=== PATIENT | male | born 1975 | race Caucasian/White ===

== ENCOUNTER 2017-02-07 08:48 | Day surgery (SDC) | payer BC ==
[2017-02-06 09:18] VITALS: BMI 23.3
[~2017-02-07 08:48] MED LIST: LACTATED RINGERS 1,000 ML IV SCH
[2017-02-07 09:01] VITALS: RESP 16; TEMP 98.4
[2017-02-07] MEDS ORDERED: LIDOCAINE 1% 20 ML VIAL (10MG/ML) FOR IV START INTRADERMA ONE (09:02)
[2017-02-07] MEDS ORDERED: PROPOFOL 10 MG/ML 20 ML VIAL IV ONE (09:13)
[2017-02-07] MEDS ORDERED: MIDAZOLAM 2 MG/2 ML VIAL ONE (09:13)
[2017-02-07] MEDS ORDERED: LIDOCAINE 1% INJ 10MG/ML (20 ML MDV) ONE (09:13)
--- NOTE | 2017-02-07 09:43 | P.PCN ---
Date of Procedure: 02/07/17 Procedure(s) Performed: Procedure: Esophagogastroduodenoscopy and biopsy. Preoperative diagnosis: Dyspepsia. Postoperative diagnosis: 1. Very small sliding hiatal hernia with no obvious esophagitis or complicated reflux disease. 2. Mild antral gastritis. 3. Multiple biopsies obtained from the duodenum, antrum and esophagus. Preparation and sedation: Was provided by anesthesia. Brief clinical history: The patient is a 41-year-old male who is referred for this evaluation because of dyspepsia type symptoms that he has been experiencing for the last 2 or 3 months. He has taken PPI for the last 1-1/2 months with no significant change in his symptoms. No vomiting or bleeding. No weight loss or other alarm symptoms. This would be his first upper endoscopy. Procedure: With the patient on his left lateral decubitus position and after informed consent and adequate sedation, I passed the Olympus-GIF 160 video upper endoscope through the cricopharyngeus down the esophagus. GE junction was around 40-41 cm from the incisors and there was a very small sliding hiatal hernia but no obvious esophagitis or complicated reflux disease. The endoscope was then passed into the stomach which was insufflated with air and inspected in detail including the retroflex view in the cardia. There was some mottling and erythema in the antrum but no ulcers or erosions. Pyloric channel, duodenal bulb, post bulbar area and descending duodenum appeared within normal limits. Because of his symptoms, I obtained multiple biopsies from the duodenum , antrum and esophagus then the endoscope was withdrawn. The patient tolerated the procedure well. Plan: The patient was reassured. Will await biopsy results then make further plans based on his course and biopsy results. He will follow up with you as planned and I would be happy to see in the office if his symptoms persist.
[2017-02-07 10:10] VITALS: BP 100/61; PULSE 54
== END 2017-02-07 10:40 | disposition home or self-care (01) ==
LOC: ORWHC2ENDO 08:48
DX: K29.50 Unspecified chronic gastritis without bleeding (principal); K44.9 Diaphragmatic hernia without obstruction or gangrene; G89.29 Other chronic pain; M25.569 Pain in unspecified knee; Z79.1 Long term (current) use of non-steroidal anti-inflammatories (NSAID); Z79.891 Long term (current) use of opiate analgesic; Z79.899 Other long term (current) drug therapy
CPT/HCPCS: 88305; 88342; 43239; J2250; J2001; J2704

== ENCOUNTER → 2020-11-25 | Outpatient (CLI) | payer BC | END | disposition home or self-care (01) | LOC: LABPAT 08:49 | PROVIDERS: ATTEND Surgery | DX: Z01.818 Encounter for other preprocedural examination (principal); Z20.822 Contact with and (suspected) exposure to COVID-19 | CPT/HCPCS: 93005; U0003; C9803; U0005 ==

== ENCOUNTER → 2020-12-02 | Day surgery (SDC) | payer BC ==
[2020-12-01 09:43] VITALS: BMI 23.3
[~2020-12-02] MED LIST changes: +BUPIVACAINE-EPI 0.5%-1:200,000 10 ML VIAL SQ ONE; +DEXAMETHASONE SOD PHOSPHATE 4 MG/ML 1 ML VIAL IV ONE; +DEXAMETHASONE SOD PHOSPHATE 4 MG/ML 1 ML VIAL ONE; +GLYCOPYRROLATE 0.2 MG/ML 2 ML VIAL ONE; +HEPARIN SODIUM,PORCINE 5,000 UNIT/ML 1 ML VIAL SQ PRN; +HYDROcodone/APAP 10-325MG 1 EACH TAB ONE; +HYDROcodone/APAP 10-325MG 1 EACH TAB PO ONE; +HYDROmorphone 1 MG/ML 1 ML SYRINGE IVP ONE; +LACTATED RINGERS 1,000 ML IV ONE; -LACTATED RINGERS 1,000 ML IV SCH; +LIDOCAINE 1% (10MG/ML) FOR IV START INTRADERMA PRN; +LIDOCAINE 1% INJ 10MG/ML (20 ML MDV) ONE; +MIDAZOLAM 2 MG/2 ML VIAL IV PRN; +MIDAZOLAM 2 MG/2 ML VIAL IVP ONE; +MIDAZOLAM 2 MG/2 ML VIAL ONE; +NEOSTIGMINE 1 MG/ML 10 ML VIAL ONE; +ONDANSETRON 4 MG/2 ML VIAL IVP ONE; +PROPOFOL 10 MG/ML 20 ML VIAL IV ONE; +ROCURONIUM 10 MG/ML (5 ML VIAL) IV ONE; +ROPIVACAINE 5 MG/ML 30 ML VIAL ONE; +SUCCINYLCHOLINE CHLORIDE 100 MG/5 ML SYR IV ONE; +diphenhydrAMINE 50 MG/ML 1 ML VIAL IVP ONE; +fentaNYL (PF) 50 MCG/ML 2 ML AMP IVP ONE; +fentaNYL (PF) 50 MCG/ML 2 ML AMP ONE
[2020-12-02 09:18] VITALS: RESP 16
[2020-12-02] MEDS: LACTATED RINGERS 1,000 ML IV SCH ×2 (09:30→10:27)
--- NOTE | 2020-12-02 10:20 | P.ANPRN ---
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
--- NOTE | 2020-12-02 11:48 | P.OP ---
Date of Procedure: 12/02/20 Preoperative Diagnosis: Umbilical hernia Postoperative Diagnosis: Umbilical hernia Procedure(s) Performed: Robotic umbilical hernia repair with mesh placement Anesthesia: KARUNA Surgeon: Rosa M Aly Pathology: other (Hernia sac) Condition: stable Disposition: same day Indications for Procedure: 45-year-old male presented initially to the surgical clinic with complaints of pain around the umbilicus. On exam, the pain was isolated to an umbilical hernia. Patient has requested surgical repair. Patient was excellent the risks, benefits and alternatives to the procedure and did provide consent prior to attending the operating suite. Operative Findings: Umbilical hernia with preperitoneal fat Description of Procedure: The patient was brought to the operating suite and placed in supine position on the operating table. Gen. anesthesia with endotracheal intubation was performed as per anesthesia team. The right arm was tucked against the body and a footboard was applied. Patient was prepped and regular sterile fashion. A timeout was performed to verify correct patient and correct procedure. Patient was confirmed to received perioperative IV antibiotics, bilateral SCDs and 5000 units of subcutaneous heparin for DVT prophylaxis. A 5 mm incision was made along the left midaxillary line at pal[place] point and the abdomen was entered under direct visualization using a Visiport. Pneumoperitoneum was achieved. The umbilical hernia was clearly visualized. An additional 8 mm trocar was placed in left lower abdomen and in the epigastrium. The initial 5 mm trocar was upsized to a 12 mm trocar. The Decision Pace Keegan robot was then docked. The 30 robotic camera was used. Robotic prograsp and monopolar scissors were inserted through the 8 mm robotic trochars. The hernia defect contained preperitoneal fat which was reduced using gentle traction and countertraction method. The falciform ligament was divided, using monopolar scissors close to the anterior abdominal wall to create a landing zone for the mesh. A Ventralight Echo 11 cm circular mesh was rolled and introduced into the abdominal cavity via the 12 mm trocar. The hernia defect was closed primarily with running sutures using 0V lock by taking once a bite on the fascia on either side of the defect. A Stephen Bates device was inserted through the middle of the hernia defect and the stay suture on the mesh was grasped to elevate the mesh against the anterior abdominal wall. The mesh was then circumferentially sutured to the peritoneum of the anterior abdominal wall using 20V lock suture without any folds or kinks. The robot was then undocked. Laparoscopic 30 camera was reinserted. All trocar sites were examined. No evidence of bleeding. The 12 mm trocar site was closed using 2 transverse fascial sutures of 0 Vicryl which was placed using a Stephen Bates device. The hernia sac was removed from the abdomen and sent as specimen. The pneumoperitoneum was evacuated and all skin incisions were closed using 4-0 Monocryl suture followed by Dermabond skin glue. The sponge, instrument and needle count were correct 2. Abdominal binder was applied. The patient was extubated and taken to postanesthesia care unit in stable condition.
[2020-12-02] MEDS: HYDROmorphone 0.5 MG/0.5 ML SYRINGE IVP PRN ×2 (12:14→12:20)
[2020-12-02 12:27] VITALS: TEMP 97.2
[2020-12-02 14:02] VITALS: BP 118/77; PULSE 82
== END | disposition home or self-care (01) ==
LOC: OR 08:53
PROVIDERS: ATTEND Surgery
DX: K42.9 Umbilical hernia without obstruction or gangrene (principal); F32.9 Major depressive disorder, single episode, unspecified; G43.909 Migraine, unspecified, not intractable, without status migrainosus; E05.90 Thyrotoxicosis, unspecified without thyrotoxic crisis or storm; E78.5 Hyperlipidemia, unspecified; N40.0 Benign prostatic hyperplasia without lower urinary tract symptoms; M19.90 Unspecified osteoarthritis, unspecified site; F90.9 Attention-deficit hyperactivity disorder, unspecified type; Z86.19 Personal history of other infectious and parasitic diseases; Z80.1 Family history of malignant neoplasm of trachea, bronchus and lung; Z87.891 Personal history of nicotine dependence; Z79.899 Other long term (current) drug therapy; Z79.890 Hormone replacement therapy; Z79.1 Long term (current) use of non-steroidal anti-inflammatories (NSAID); Z79.891 Long term (current) use of opiate analgesic
CPT/HCPCS: 49652; S2900; 36415; 64488; 86850; 86900; 86901; 88302

== ENCOUNTER 2020-12-04 21:42 | Emergency (ER) | payer BC ==
[2020-12-04] MEDS ORDERED: HYDROmorphone 1 MG/ML 1 ML SYRINGE IVP STA (22:30)
[2020-12-04] MEDS ORDERED: SODIUM CHLORIDE 0.9% 1,000 ML IV STA (22:30)
[2020-12-04] MEDS ORDERED: ONDANSETRON 4 MG/2 ML VIAL IVP STA (22:30)
[2020-12-04 22:49] LABS: Basophils # (A) 0.1 k/uL (0-0.2); Basophils % (A) 1 %; Eosinophils # (A) 0.3 k/uL (0-0.7); Eosinophils % (A) 3 %; HCT 44.7 % (39.0-53.0); HGB 15.3 gm/dL (13.0-17.5); Lymphocytes # (A) 2.4 k/uL (1.0-4.8); Lymphocytes % (A) 22 %; MCHC 34.2 g/dL (31.0-37.0); MCV 90.7 fL (80.0-100.0); Mean Platelet Volume 10.9; Monocytes # (A) 0.6 k/uL (0-1.0); Monocytes % (A) 5 %; Neutrophils # (A) 7.6 k/uL (1.3-7.7); Neutrophils % (A) 69 %; Platelet Count 187 k/uL (150-450); RBC 4.93 m/uL (4.30-5.90); RDW 12.8 % (11.5-15.5)
[2020-12-04 23:01] LABS: Albumin 4.8 g/dL (3.5-5.0); Calcium 9.9 mg/dL (8.4-10.2); Potassium 4.1 mmol/L (3.5-5.1)
[2020-12-04 23:02] LABS: INR 0.9 (<1.2); Partial Thromboplastin Time 24.1 sec (22.0-30.0); Prothrombin Time 9.5 sec (9.0-12.0)
[2020-12-04 23:09] LABS: Appearance,Urine Clear (Clear); Bilirubin,Urine Negative (Negative); Blood,Urine Negative (Negative); Color,Urine Yellow; Glucose,Urine (UA) Negative (Negative); Ketones,Urine Negative (Negative); Leukocyte Esterase,Urine Negative (Negative); Nitrite,Urine Negative (Negative); PH, Urine 6.5 (5.0-8.0); Protein,Urine Negative (Negative); Specific Gravity,Urine 1.016 (1.001-1.035); Urobilinogen,Urine <2.0 mg/dL (<2.0)
--- NOTE | 2020-12-04 23:41 | CT ---
EXAMINATION TYPE: CT abdomen pelvis w con DATE OF EXAM: 12/04/2020 COMPARISON: None HISTORY: Abdominal pain after surgery CT DLP: 672.8 mGycm Automated exposure control for dose reduction was used. CONTRAST: Performed with IV Contrast, patient injected with 100 mL of Isovue 300. Images obtained from the diaphragm to the floor the pelvis with IV contrast. There is some patchy atelectasis at the lung bases. There is mild pleural thickening at the posterior lung bases. Heart size is normal. There is no pericardial effusion. There is small pneumoperitoneum consistent with recent surgery. The liver spleen stomach pancreas gal lbladder appear normal. Bile ducts are not dilated. There is no adrenal mass. Kidneys show satisfactory contrast opacification. There is no hydronephrosi s. Ureters are not dilated. Bladder distends smoothly. There is no inguinal hernia. There is small am ount of free fluid in the pelvis. This has low density. Appendix is posterior and appears normal. There is no mesenteric edema. There is no ascites or free a ir. There is no sign of a bowel obstruction. There are a few air bubbles at the umbilicus consistent with recent surgery. There is minimal fluid or fat stranding in the left paracolic gutter. The lumbar vertebra have normal spacing and alignment. Posterior elements are intact. There is no compression fracture. Bony pelvis is intact. The hip joints appear normal. IMPRESSION: Bilateral lower lobe mild atelectasis and pleural reaction. Recent surgery. Tiny amount of low-density fluid in the left paracolic gutter and in the pelvis.
[2020-12-05] MEDS ORDERED: HYDROmorphone 1 MG/ML 1 ML SYRINGE IVP STA (00:13)
--- NOTE | 2020-12-05 00:36 | ED ---
General Adult HPI - General Chief complaint: Abdominal Pain Stated complaint: post op Abd Pain Time Seen by Provider: 12/04/20 22:11 Source: patient Mode of arrival: wheelchair Limitations: no limitations - History of Present Illness Initial comments: 45 year-old male patient presents to the emergency department for evaluation of generalized abdominal pain. Patient is post op day # 2 from repair of umbilical hernia with Dr. Aly. Patient states that his pain has been severe since the procedure. States he is taking [place] 10 and ibuprofen, it is not helping. Denies any fever, nausea, or vomiting. States he is passing gas. Has not had a bowel movement. States he is eating and drinking without difficulty. Has been wearing his abdominal binder. Denies bleeding or drainage from incision sites. Has not contacted Dr. Aly about his symptoms. Patient denies any recent rash, cough, shortness of breath, chest pain, back pain, numbness, tingling, dizziness, weakness, hematuria, dysuria, urinary urgency, urinary frequency, headache, visual changes, or any other complaints. - Related Data Home Medications Medication Instructions Recorded Confirmed Colesevelam [Welchol] 625 mg PO 1200 02/06/17 12/02/20 Dextroamphetamine/Amphetamine 20 mg PO DAILY PRN 02/06/17 12/01/20 [Adderall] Diclofenac Sodium [Voltaren] 75 mg PO DAILY PRN 02/06/17 12/02/20 Testosterone [Androderm] 1 patch TRANSDERM DAILY 02/06/17 12/02/20 traMADol HCL [Ultram] 50 mg PO TID PRN 02/06/17 12/02/20 Levothyroxine Sodium [Synthroid] 25 mcg PO HS 12/01/20 12/02/20 Tadalafil [Alyq] 20 mg PO DIRECTED PRN 12/01/20 12/02/20 Previous Rx's Medication Instructions Recorded HYDROcodone/APAP 10-325MG [[place] 1 tab PO Q6HR PRN 3 Days #12 tab 12/02/20 10-325] Ibuprofen [Motrin] 800 mg PO Q8H PRN #24 tab 12/02/20 Allergies Allergy/AdvReac Type Severity Reaction Status Date / Time No Known Allergies Allergy Verified 12/04/20 21:54 Review of Systems ROS Statement: Those systems with pertinent positive or pertinent negative responses have been documented in the HPI. ROS Other: All systems not noted in ROS Statement are negative. Past Medical History Past Medical History: Hyperlipidemia Additional Past Medical History / Comment(s): HAS BEEN HAVING EPISODES OF NAUSEA FOR PAST 3 MONTHS. HAS NOT TAKEN RX MEDS FOR SEVERAL DAYS R/T NAUSEA History of Any Multi-Drug Resistant Organisms: None Reported Past Surgical History: Hernia Repair Past Anesthesia/Blood Transfusion Reactions: No Reported Reaction Past Psychological History: ADD/ADHD Smoking Status: Former smoker Past Alcohol Use History: Rare Past Drug Use History: None Reported - Past Family History Mother Family Medical History: Cancer General Exam Limitations: no limitations General appearance: alert, in no apparent distress, other (This is a well-developed, well-nourished adult male patient in mild distress related to pain. Vital signs upon presentation are temperature 99.6F, pulse 90, respirations 17, blood pressure 126/81 98% on room air.) Eye exam: Present: normal appearance, PERRL, EOMI. Absent: scleral icterus, conjunctival injection, periorbital swelling ENT exam: Present: normal exam, normal oropharynx, mucous membranes moist Respiratory exam: Present: normal lung sounds bilaterally. Absent: respiratory distress, wheezes, rales, rhonchi, stridor Cardiovascular Exam: Present: regular rate, normal rhythm, normal heart sounds. Absent: systolic murmur, diastolic murmur, rubs, gallop, clicks GI/Abdominal exam: Present: soft, tenderness (generalized), normal bowel sounds, other (Multiple small incisions are well approximated, mild surrounding ecchymosis. No drainage. ). Absent: distended, guarding, rebound, rigid Neurological exam: Present: alert, oriented X3, CN II-XII intact Psychiatric exam: Present: normal affect, normal mood Skin exam: Present: warm, dry, intact, normal color. Absent: rash Course Vital Signs 12/04/20 21:50 Temperature 99.6 F Pulse Rate 90 Respiratory 17 Rate Blood Pressure 126/81 O2 Sat by Pulse 98 Oximetry Medical Decision Making - Medical Decision Making 45 year-old male patient presents to the emergency department today for evaluation of generalized abdominal pain. He is postop day #2 after umbilical hernia repair with Dr. Aly. Physical examination did reveal generalized abdominal tenderness. Incisions are intact with no drainage or bleeding. Labs reviewed and are unremarkable. CT abdomen and pelvis was obtained and showed postsurgical changes. I did discuss the case with my attending Dr. Grayson. We will discharge patient to follow-up with Dr. Aly first thing in the morning. He is instructed to continue taking his [place] at home. Return parameters discussed in detail. He verbalizes understanding and agrees with this plan. - Lab Data Result diagrams: 12/04/20 22:36 12/04/20 22:36 Lab Results 12/04/20 12/04/20 12/04/20 Range/Units 22:36 22:36 22:36 WBC 11.0 H (3.8-10.6) k/uL RBC 4.93 (4.30-5.90) m/uL Hgb 15.3 (13.0-17.5) gm/dL Hct 44.7 (39.0-53.0) % MCV 90.7 (80.0-100.0) fL MCH 31.0 (25.0-35.0) pg MCHC 34.2 (31.0-37.0) g/dL RDW 12.8 (11.5-15.5) % Plt Count 187 (150-450) k/uL MPV 10.9 Neutrophils % 69 % Lymphocytes % 22 % Monocytes % 5 % Eosinophils % 3 % Basophils % 1 % Neutrophils # 7.6 (1.3-7.7) k/uL Lymphocytes # 2.4 (1.0-4.8) k/uL Monocytes # 0.6 (0-1.0) k/uL Eosinophils # 0.3 (0-0.7) k/uL Basophils # 0.1 (0-0.2) k/uL PT 9.5 (9.0-12.0) sec INR 0.9 (<1.2) APTT 24.1 (22.0-30.0) sec Sodium (137-145) mmol/L Potassium (3.5-5.1) mmol/L Chloride (98-107) mmol/L Carbon Dioxide (22-30) mmol/L Anion Gap mmol/L BUN (9-20) mg/dL Creatinine (0.66-1.25) mg/dL Est GFR (CKD-EPI)AfAm (>60 ml/min/1.73 sqM) Est GFR (CKD-EPI)NonAf (>60 ml/min/1.73 sqM) Glucose (74-99) mg/dL Plasma Lactic Acid Guillermo (0.7-2.0) mmol/L Calcium (8.4-10.2) mg/dL Total Bilirubin (0.2-1.3) mg/dL AST (17-59) U/L ALT (4-49) U/L Alkaline Phosphatase (38-126) U/L Total Protein (6.3-8.2) g/dL Albumin (3.5-5.0) g/dL Lipase (23-300) U/L Urine Color Yellow Urine Appearance Clear (Clear) Urine pH 6.5 (5.0-8.0) Ur Specific [place] 1.016 (1.001-1.035) Urine Protein Negative (Negative) Urine Glucose (UA) Negative (Negative) Urine Ketones Negative (Negative) Urine Blood Negative (Negative) Urine Nitrite Negative (Negative) Urine Bilirubin Negative (Negative) Urine Urobilinogen <2.0 (<2.0) mg/dL Ur Leukocyte Esterase Negative (Negative) 12/04/20 12/04/20 Range/Units 22:36 22:36 WBC (3.8-10.6) k/uL RBC (4.30-5.90) m/uL Hgb (13.0-17.5) gm/dL Hct (39.0-53.0) % MCV (80.0-100.0) fL MCH (25.0-35.0) pg MCHC (31.0-37.0) g/dL RDW (11.5-15.5) % Plt Count (150-450) k/uL MPV Neutrophils % % Lymphocytes % % Monocytes % % Eosinophils % % Basophils % % Neutrophils # (1.3-7.7) k/uL Lymphocytes # (1.0-4.8) k/uL Monocytes # (0-1.0) k/uL Eosinophils # (0-0.7) k/uL Basophils # (0-0.2) k/uL PT (9.0-12.0) sec INR (<1.2) APTT (22.0-30.0) sec Sodium 140 (137-145) mmol/L Potassium 4.1 (3.5-5.1) mmol/L Chloride 100 (98-107) mmol/L Carbon Dioxide 29 (22-30) mmol/L Anion Gap 11 mmol/L BUN 13 (9-20) mg/dL Creatinine 1.18 (0.66-1.25) mg/dL Est GFR (CKD-EPI)AfAm 85 (>60 ml/min/1.73 sqM) Est GFR (CKD-EPI)NonAf 74 (>60 ml/min/1.73 sqM) Glucose 102 H (74-99) mg/dL Plasma Lactic Acid [place] 1.6 (0.7-2.0) mmol/L Calcium 9.9 (8.4-10.2) mg/dL Total Bilirubin 1.0 (0.2-1.3) mg/dL AST 91 H (17-59) U/L ALT 126 H (4-49) U/L Alkaline Phosphatase 110 (38-126) U/L Total Protein 8.0 (6.3-8.2) g/dL Albumin 4.8 (3.5-5.0) g/dL Lipase 107 (23-300) U/L Urine Color Urine Appearance (Clear) Urine pH (5.0-8.0) Ur Specific [place] (1.001-1.035) Urine Protein (Negative) Urine Glucose (UA) (Negative) Urine Ketones (Negative) Urine Blood (Negative) Urine Nitrite (Negative) Urine Bilirubin (Negative) Urine Urobilinogen (<2.0) mg/dL Ur Leukocyte Esterase (Negative) - Radiology Data Radiology results: report reviewed, image reviewed CT abdomen and pelvis is obtained with contrast. Report was reviewed in its entirety. Impression by Dr. Izquierdo shows bilateral lower lobe mild atelectasis and pleural reaction. Recent surgery. Tiny amount of low density fluid in the left paracolic gutter and in the pelvis. Disposition Clinical Impression: Post-op pain Disposition: HOME SELF-CARE Condition: Good Instructions (If sedation given, give patient instructions): Abdominal Pain (ED) Additional Instructions: Call Dr. Aly's office first thing in the morning for further instructions. Return to the emergency department for any new, worsening, or concerning symptoms. Is patient prescribed a controlled substance at d/c from ED?: No Referrals: Edgar Willis MD [Primary Care Provider] - 1-2 days Time of Disposition: 00:36
[2020-12-05 01:11] VITALS: BP 122/86; PULSE 76; RESP 18; TEMP 98.6
== END 2020-12-05 00:55 | disposition home or self-care (01) ==
LOC: EC 21:42
DX: G89.18 Other acute postprocedural pain (principal); R10.84 Generalized abdominal pain; R10.817 Generalized abdominal tenderness; E78.5 Hyperlipidemia, unspecified; F90.9 Attention-deficit hyperactivity disorder, unspecified type; Z79.890 Hormone replacement therapy; Z79.899 Other long term (current) drug therapy; Z87.891 Personal history of nicotine dependence
CPT/HCPCS: 36415; 80053; 83605; 83690; 85025; 85610; 85730; 81003; 74177; 99284; 96374; 96375; 96376; 96361; J2405; J1170; Q9967

== ENCOUNTER 2020-12-09 00:51 | Observation (INO) | payer BC ==
[2020-12-09] MEDS ORDERED: SODIUM CHLORIDE 0.9% 1,000 ML IV STA (01:19)
--- NOTE | 2020-12-09 01:19 | ED ---
Abdominal Pain HPI - General Chief Complaint: Abdominal Pain Stated Complaint: Abd Pain Time Seen by Provider: 12/09/20 01:03 Source: patient, family Mode of arrival: wheelchair Limitations: no limitations - History of Present Illness Initial Comments: 45-year-old male presents to emergency Department with a chief complaint of constipation. Patient states he had an umbilical hernia repair 7 days ago and has not had a bowel movement since. Patient reports he was in the emergency department 2 days after procedure where a CAT scan was performed with no acute findings. Patient reports he has been taking MiraLAX as well as a glycerin suppository with no progress of this. Patient reports he is otherwise eating and drinking without issues. Denies any nausea vomiting or diarrhea. States he feels like his abdomen is bloated. Denies any urinary symptoms. Denies any fevers or chills. Patient does take occasional [place] for arthritic pain. - Related Data Home Medications Medication Instructions Recorded Confirmed Colesevelam [Welchol] 625 mg PO 1200 02/06/17 12/02/20 Dextroamphetamine/Amphetamine 20 mg PO DAILY PRN 02/06/17 12/01/20 [Adderall] Diclofenac Sodium [Voltaren] 75 mg PO DAILY PRN 02/06/17 12/02/20 Testosterone [Androderm] 1 patch TRANSDERM DAILY 02/06/17 12/02/20 traMADol HCL [Ultram] 50 mg PO TID PRN 02/06/17 12/02/20 Levothyroxine Sodium [Synthroid] 25 mcg PO HS 12/01/20 12/02/20 Tadalafil [Alyq] 20 mg PO DIRECTED PRN 12/01/20 12/02/20 Previous Rx's Medication Instructions Recorded HYDROcodone/APAP 10-325MG [[place] 1 tab PO Q6HR PRN 3 Days #12 tab 12/02/20 10-325] Ibuprofen [Motrin] 800 mg PO Q8H PRN #24 tab 12/02/20 Allergies Allergy/AdvReac Type Severity Reaction Status Date / Time No Known Allergies Allergy Verified 12/09/20 00:56 Review of Systems ROS Statement: Those systems with pertinent positive or pertinent negative responses have been documented in the HPI. ROS Other: All systems not noted in ROS Statement are negative. Past Medical History Past Medical History: Hyperlipidemia Additional Past Medical History / Comment(s): HAS BEEN HAVING EPISODES OF NAUSEA FOR PAST 3 MONTHS. HAS NOT TAKEN RX MEDS FOR SEVERAL DAYS R/T NAUSEA History of Any Multi-Drug Resistant Organisms: None Reported Past Surgical History: Hernia Repair Past Anesthesia/Blood Transfusion Reactions: No Reported Reaction Past Psychological History: ADD/ADHD Smoking Status: Former smoker Past Alcohol Use History: Rare Past Drug Use History: None Reported - Past Family History Mother Family Medical History: Cancer General Exam Limitations: no limitations General appearance: alert, in no apparent distress Head exam: Present: atraumatic, normocephalic, normal inspection Eye exam: Present: normal appearance, PERRL, EOMI Pupils: Present: normal accommodation ENT exam: Present: normal exam, normal oropharynx, mucous membranes moist Neck exam: Present: normal inspection, full ROM. Absent: tenderness Respiratory exam: Present: normal lung sounds bilaterally. Absent: respiratory distress Cardiovascular Exam: Present: regular rate, normal rhythm, normal heart sounds GI/Abdominal exam: Present: soft (Laparoscopic incision sites are healing well.), normal bowel sounds. Absent: distended, tenderness (No significant abdominal tenderness), guarding, rebound, rigid Extremities exam: Present: normal inspection, full ROM Back exam: Present: normal inspection, full ROM. Absent: tenderness, CVA tenderness (R), CVA tenderness (L) Neurological exam: Present: alert, oriented X3 Psychiatric exam: Present: normal affect, normal mood Skin exam: Present: warm, dry, intact, normal color Course Vital Signs 12/09/20 00:56 Temperature 99.2 F Pulse Rate 87 Respiratory 16 Rate Blood Pressure 134/90 O2 Sat by Pulse 98 Oximetry - Reevaluation(s) Reevaluation #1: 12/09/20 03:25 Medical records reviewed Medical Decision Making - Medical Decision Making 45-year-old male presents to emergency Department with a chief complaint of constipation. On physical examination, no significant abdominal tenderness. Incision sites are healing well from the laparoscopic umbilical hernia repair. KUB obtained shows moderate stool burden in the ascending colon. Patient was given IV fluids. Milk of molasses enema attempted. Patient was also given magnesium citrate. CBC revealed leukocytosis of 14.2. CMP transaminitis but otherwise unremarkable. UA pending. At this time, patient care signed off to . - Lab Data Result diagrams: 12/09/20 02:12 12/09/20 02:12 Lab Results 12/09/20 12/09/20 Range/Units 02:12 02:12 WBC 14.8 H (3.8-10.6) k/uL RBC 4.68 (4.30-5.90) m/uL Hgb 14.2 (13.0-17.5) gm/dL Hct 42.1 (39.0-53.0) % MCV 90.1 (80.0-100.0) fL MCH 30.4 (25.0-35.0) pg MCHC 33.7 (31.0-37.0) g/dL RDW 12.1 (11.5-15.5) % Plt Count 211 (150-450) k/uL MPV 8.6 Neutrophils % 84 % Lymphocytes % 9 % Monocytes % 4 % Eosinophils % 3 % Basophils % 1 % Neutrophils # 12.5 H (1.3-7.7) k/uL Lymphocytes # 1.3 (1.0-4.8) k/uL Monocytes # 0.5 (0-1.0) k/uL Eosinophils # 0.4 (0-0.7) k/uL Basophils # 0.1 (0-0.2) k/uL Sodium 137 (137-145) mmol/L Potassium 5.0 (3.5-5.1) mmol/L Chloride 102 (98-107) mmol/L Carbon Dioxide 29 (22-30) mmol/L Anion Gap 6 mmol/L BUN 16 (9-20) mg/dL Creatinine 1.07 (0.66-1.25) mg/dL Est GFR (CKD-EPI)AfAm >90 (>60 ml/min/1.73 sqM) Est GFR (CKD-EPI)NonAf 84 (>60 ml/min/1.73 sqM) Glucose 100 H (74-99) mg/dL Calcium 9.6 (8.4-10.2) mg/dL Total Bilirubin 0.8 (0.2-1.3) mg/dL AST 148 H (17-59) U/L ALT 226 H (4-49) U/L Alkaline Phosphatase 105 (38-126) U/L Total Protein 7.0 (6.3-8.2) g/dL Albumin 4.1 (3.5-5.0) g/dL Amylase 71 (30-110) U/L Lipase 69 (23-300) U/L Disposition Referrals: Edgar Willis MD [Primary Care Provider] - 1-2 days
[2020-12-09 02:21] LABS: Basophils # (A) 0.1 k/uL (0-0.2); Basophils % (A) 1 %; Eosinophils # (A) 0.4 k/uL (0-0.7); Eosinophils % (A) 3 %; HCT 42.1 % (39.0-53.0); HGB 14.2 gm/dL (13.0-17.5); Lymphocytes # (A) 1.3 k/uL (1.0-4.8); Lymphocytes % (A) 9 %; MCH 30.4 pg (25.0-35.0); MCHC 33.7 g/dL (31.0-37.0); MCV 90.1 fL (80.0-100.0); Mean Platelet Volume 8.6; Monocytes # (A) 0.5 k/uL (0-1.0); Monocytes % (A) 4 %; Neutrophils # (A) 12.5 k/uL (1.3-7.7); Neutrophils % (A) 84 %; Platelet Count 211 k/uL (150-450); RBC 4.68 m/uL (4.30-5.90); RDW 12.1 % (11.5-15.5); WBC 14.8 k/uL (3.8-10.6)
[2020-12-09 02:36] LABS: ALT 226 U/L (4-49); AST 148 U/L (17-59); African American GFR (CKD) >90 (>60 ml/min/1.73 sqM); Albumin 4.1 g/dL (3.5-5.0); Alkaline Phosphatase 105 U/L (38-126); Amylase 71 U/L (30-110); Anion Gap 6 mmol/L; Blood Urea Nitrogen 16 mg/dL (9-20); Calcium 9.6 mg/dL (8.4-10.2); Carbon Dioxide 29 mmol/L (22-30); Chloride 102 mmol/L (98-107); Glucose 100 mg/dL (74-99); Lipase 69 U/L (23-300); Non-African American GFR(CKD) 84 (>60 ml/min/1.73 sqM); Sodium 137 mmol/L (137-145); Total Bilirubin 0.8 mg/dL (0.2-1.3)
--- NOTE | 2020-12-09 02:53 | XR ---
EXAM: XR Abdomen, 1 View CLINICAL HISTORY: ITS.REASON XR Reason: constipation TECHNIQUE: Frontal supine view of the abdomen/pelvis. COMPARISON: CT 12/04/2020 FINDINGS: Intraperitoneal space: No pneumoperitoneum. Gastrointestinal tract: Moderate stool in the ascending colon. Mild stool in the distal rectosigmoid region. The remainder of the colon is decompressed. Prominent small bowel gas pattern in the left upper quadrant with multiple gas distended loops of small bowel. No evidence for dilatation. Bones/joints: Unremarkable. IMPRESSION: 1. Moderate stool burden in the ascending colon, decreased from the previous CT examination. Otherwise, no significant stool burden. 2. Prominent small bowel gas pattern in the left upper quadrant is nonspecific and may represent normal variation or enteritis. No definite radiographic evidence for high-grade bowel obstruction. No pneumoperitoneum.
[2020-12-09] MEDS ORDERED: MAGNESIUM CITRATE 296 ML BOTTLE PO ONE (03:24)
[2020-12-09] MEDS ORDERED: MORPHINE SULFATE 4 MG/ML SYRINGE IV STA (05:44)
--- NOTE | 2020-12-09 06:26 | CT ---
EXAM: CT Abdomen and Pelvis Without Intravenous Contrast CLINICAL HISTORY: ITS.REASON CT Reason: abdominal pain TECHNIQUE: Axial computed tomography images of the abdomen and pelvis without intravenous contrast. CTDI is 7.27 mGy and DLP is 390.9 mGy-cm. This CT exam was performed using one or more of the following dose reduction techniques: automated exposure control, adjustment of the mA and/or kV according to patient size, and/or use of iterative reconstruction technique. COMPARISON: 12/04/2020 FINDINGS: Lung bases: Subsegmental changes at the lung bases are presumed atelectasis. ABDOMEN: Liver: Unremarkable. Gallbladder and bile ducts: Unremarkable. No calcified stones. No ductal dilation. Pancreas: Unremarkable. No ductal dilation. Spleen: Unremarkable. No splenomegaly. Adrenals: Unremarkable. No mass. Kidneys and ureters: Unremarkable. No obstructing stones. No hydronephrosis. Stomach and bowel: There is moderate stool noted in the ascending and transverse colon, questionably slightly increased from the previous exam. There is also moderate distention of the rectal vault with stool now identified. No evaluation of bowel mucosa is limited without contrast. However, no colonic mucosal thickening identified. There is new presacral fat stranding identified however. The small bowel is stable and unremarkable without definite focal new coastal abnormality or obstruction. PELVIS: Appendix: The appendiceal tip is borderline, measuring 8 mm. The remainder of the appendix is normal in caliber. No periappendiceal fat stranding. Bladder: Unremarkable. No stones. Reproductive: Unremarkable as visualized. ABDOMEN and PELVIS: Intraperitoneal space: Unremarkable. No free air. No significant fluid collection. Bones/joints: No acute fracture. No dislocation. Soft tissues: The previously noted subcutaneous emphysema along the abdominal wall and small amount of pneumoperitoneum has resolved. There is only minimal gas remaining in the periumbilical region superficial to the presumed abdominal wall mesh. No developing fluid collection or hematoma. Vasculature: Unremarkable. No abdominal aortic aneurysm. Lymph nodes: Unremarkable. No enlarged lymph nodes. IMPRESSION: 1. There is moderate stool noted in the ascending and transverse colon, questionably slightly increased from the previous exam. There is also moderate distention of the rectal vault with stool now identified. No evaluation of bowel mucosa is limited without contrast. However, no colonic mucosal thickening identified. There is new presacral fat stranding identified however. The clinical significance of this finding is indeterminate. However, findings suggest constipation with questionable changes related to edema or venous straining in the pelvis. No evidence for high-grade bowel obstruction. 2. The previously noted subcutaneous emphysema along the abdominal wall and small amount of pneumoperitoneum has resolved. There is only minimal gas remaining in the periumbilical region superficial to the presumed abdominal wall mesh. No developing fluid collection or hematoma.
[2020-12-09] MEDS ORDERED: NALOXONE 0.4 MG/ML 1 ML VIAL IV PRN (07:48)
[2020-12-09] MEDS ORDERED: ACETAMINOPHEN TAB 325 MG TAB PO PRN (07:48)
[2020-12-09] MEDS: SODIUM CHLORIDE 0.9% 1,000 ML IV SCH ×2 (08:13→14:32)
[2020-12-09] MEDS ORDERED: cefTRIAXone IN SWFI 1,000 MG/10 ML SYRINGE IVP STA ×2 (08:29→08:30)
[2020-12-09] MEDS ORDERED: PANTOPRAZOLE 40 MG/10 ML VIAL IV SCH (09:00)
[2020-12-09] MEDS ORDERED: traMADol 50 MG TAB PO PRN (10:22)
[2020-12-09] MEDS ORDERED: SUMAtriptan succinate 50 MG TAB PO PRN (10:22)
[2020-12-09] MEDS ORDERED: NON FORMULARY DRUG (Dextroamphetamine/Amphetamine [Adderall Xr] 20 MG Cap.Er.24h) PO PRN (10:22)
[2020-12-09] MEDS ORDERED: TESTOSTERONE TRANSDERM SCH (10:30)
[2020-12-09] MEDS: ETODOLAC 400 MG TAB PO SCH ×2 (12:46→20:16)
[2020-12-09] MEDS: ENOXAPARIN 40 MG/0.4 ML SYRINGE SQ SCH (12:47)
[2020-12-09 13:54] VITALS: BMI 23.3
[2020-12-09] MEDS ORDERED: MORPHINE SULFATE 4 MG/ML SYRINGE IVP PRN (14:33)
--- NOTE | 2020-12-09 15:05 | P.GSCN ---
History of Present Illness Consult date: 12/09/20 History of present illness: 45-year-old male presented to the emergency department with complaints of abdominal pain. He is known to me from previous robotic umbilical hernia repair with mesh that was performed approximately 1 week ago. Since surgery, the patient states that he has had a significant amount of abdominal pain. He states that prior to his emergency department visit he has not had a bowel movement since his surgical procedure. Patient was discharged on opiate pain medication, [place] 10/325, on day of his procedure. He is noted to take this pain medication chronically for other pain issues. Apparently, he also did have an emergency department visit 2 days after his surgical procedure secondary to pain as well. He was discharged from the emergency department and did call the surgical clinic the next day. Recommendation was made for continuing his narcotic pain medication along with ibuprofen 800 mg that was provided to the patient. He also did visit his primary care physician that did provide the patient with Toradol injection. He is accompanied by his at bedside. They are requesting better pain control. Since admission, patient has been given magnesium citrate and 2 enemas. Per nursing, patient has had a significant amount of bowel function. Patient states that he has had some relief in his abdominal pain since the bowel function. Review of Systems All systems: negative Past Medical History Past Medical History: Osteoarthritis (OA), Prostate Disorder, Thyroid Disorder Additional Past Medical History / Comment(s): Migraines, arthritis multiple joints/low back pain, gastritis, hypothyroid, BPH that resolved History of Any Multi-Drug Resistant Organisms: None Reported Past Surgical History: Hernia Repair Additional Past Surgical History / Comment(s): 12/02/20 umbilical hernia repair, EGD, vasectomy Past Anesthesia/Blood Transfusion Reactions: No Reported Reaction Smoking Status: Former smoker - Past Family History Mother Family Medical History: Cancer Additional Family Medical History / Comment(s): Mother is from lung cancer. Father Additional Family Medical History / Comment(s): Father of a drug overdose. Medications and Allergies Home Medications Medication Instructions Recorded Confirmed Type Diclofenac Sodium [Voltaren] 75 mg PO BID 02/06/17 12/09/20 History Testosterone [Androderm] 1 patch TRANSDERM Q72H 02/06/17 12/09/20 History traMADol HCL [Ultram] 50 mg PO TID PRN 02/06/17 12/09/20 History Levothyroxine Sodium [Synthroid] 25 mcg PO HS 12/01/20 12/09/20 History Tadalafil [Alyq] 20 mg PO DIRECTED PRN 12/01/20 12/09/20 History HYDROcodone/APAP 10-325MG [[place] 1 tab PO Q6HR PRN 3 Days #12 tab 12/02/20 12/09/20 Rx 10-325] Ibuprofen [Motrin] 800 mg PO Q8H PRN #24 tab 12/02/20 12/09/20 Rx Dextroamphetamine/Amphetamine 20 mg PO DAILY PRN 12/09/20 12/09/20 History [Adderall Xr] Ketorolac [Toradol] 10 mg PO TID 12/09/20 12/09/20 History Rizatriptan Benzoate [Maxalt] 10 mg PO DAILY PRN 12/09/20 12/09/20 History buPROPion XL [Wellbutrin Xl] 300 mg PO HS 12/09/20 12/09/20 History Allergies Allergy/AdvReac Type Severity Reaction Status Date / Time No Known Allergies Allergy Verified 12/09/20 08:36 Surgical - Exam Osteopathic Statement: *. No significant issues noted on an osteopathic structural exam other than those noted in the History and Physical/Consult. Vital Signs Temp Pulse Resp BP Pulse Ox 99.2 F 87 16 134/90 98 12/09/20 00:56 12/09/20 00:56 12/09/20 00:56 12/09/20 00:56 12/09/20 00:56 - General well developed, well nourished, no distress - Eyes PERRL - ENT no hearing loss - Neck trachea midline - Respiratory normal respiratory effort - Abdomen Soft, generalized appropriate tenderness, mild distention, no rebound, no guarding - Psychiatric oriented to time, oriented to person, oriented to place Results - Labs 12/09/20 02:12 12/09/20 02:12 Abnormal Lab Results - Last 24 Hours (Table) 12/09/20 12/09/20 Range/Units 02:12 02:12 WBC 14.8 H (3.8-10.6) k/uL Neutrophils # 12.5 H (1.3-7.7) k/uL Glucose 100 H (74-99) mg/dL AST 148 H (17-59) U/L ALT 226 H (4-49) U/L Diabetes panel 12/09/20 Range/Units 02:12 Sodium 137 (137-145) mmol/L Potassium 5.0 (3.5-5.1) mmol/L Chloride 102 (98-107) mmol/L Carbon Dioxide 29 (22-30) mmol/L BUN 16 (9-20) mg/dL Creatinine 1.07 (0.66-1.25) mg/dL Glucose 100 H (74-99) mg/dL Calcium 9.6 (8.4-10.2) mg/dL AST 148 H (17-59) U/L ALT 226 H (4-49) U/L Alkaline Phosphatase 105 (38-126) U/L Total Protein 7.0 (6.3-8.2) g/dL Albumin 4.1 (3.5-5.0) g/dL Calcium panel 12/09/20 Range/Units 02:12 Calcium 9.6 (8.4-10.2) mg/dL Albumin 4.1 (3.5-5.0) g/dL Pituitary panel 12/09/20 Range/Units 02:12 Sodium 137 (137-145) mmol/L Potassium 5.0 (3.5-5.1) mmol/L Chloride 102 (98-107) mmol/L Carbon Dioxide 29 (22-30) mmol/L BUN 16 (9-20) mg/dL Creatinine 1.07 (0.66-1.25) mg/dL Glucose 100 H (74-99) mg/dL Calcium 9.6 (8.4-10.2) mg/dL Adrenal panel 12/09/20 Range/Units 02:12 Sodium 137 (137-145) mmol/L Potassium 5.0 (3.5-5.1) mmol/L Chloride 102 (98-107) mmol/L Carbon Dioxide 29 (22-30) mmol/L BUN 16 (9-20) mg/dL Creatinine 1.07 (0.66-1.25) mg/dL Glucose 100 H (74-99) mg/dL Calcium 9.6 (8.4-10.2) mg/dL Total Bilirubin 0.8 (0.2-1.3) mg/dL AST 148 H (17-59) U/L ALT 226 H (4-49) U/L Alkaline Phosphatase 105 (38-126) U/L Total Protein 7.0 (6.3-8.2) g/dL Albumin 4.1 (3.5-5.0) g/dL Assessment and Plan Plan: I had a long discussion, greater than 30 minutes, with the patient and the patient's . They are upset by a the lack of pain control for the patient. The patient and the patient's are understanding of some level of tolerance to opiate pain medication secondary to the patient's chronic history of taking [place] 10/325 along with tramadol. Also, there is concern for level of constipation, likely secondary to narcotic pain medication. 2 ease the patient's pain, we will attempt to use Percocet rather than Narco and give the patient some IV opiate when necessary. We will also begin the patient on a bowel regimen of Colace twice a day along with daily MiraLAX. The patient and the patient's are agreeable with this plan. We will continue to follow.
[2020-12-09 20:11] VITALS: RESP 16
[2020-12-09] MEDS: DOCUSATE 100 MG CAP PO SCH (20:16)
[2020-12-09] MEDS ORDERED: buPROPion XL 300 MG TAB.ER.24H PO SCH (21:00)
--- NOTE | 2020-12-09 23:07 | P.HPIM ---
History of Present Illness H&P Date: 12/09/20 Chief Complaint: Abdominal pain History of presenting complaint: This is a pleasant 45-year-old patient of Dr. Edgar Willis. Patient had undergone a clinical hernia surgery by , close to about a week ago. That is Saturday. Patient is sent to the ER the following Saturday with increasing pain. Sent home from the same. Patient continued to have an oral intake. Ursula loving had a bowel movement. He said he tried to contact the surgeon's office but was asked to continue the same medications. Patient is having worsening abdominal pain. No nausea vomiting. No fever no chills. Decrease activity. He presented to the ER again. Computed tomography scan did show a lot of stool retention. Patient did get a subsided and now in the ER with a small result. We'll also started on magnesium citrate. Patient was requesting a change of surgeon. I did request him to first doctor's surgeon clarify any numbness understandings if any. Patient and the agreeable to same. Review of systems: GEN.: Tired EYES: None HEENT: None NECK: None RESPIRATORY: None CARDIOVASCULAR: None GASTROINTESTINAL: As above GENITOURINARY: None MUSCULOSKELETAL: None LYMPHATICS: None HEMATOLOGICAL: None PSYCHIATRY: Anxious NEUROLOGICAL: None Past medical history to include: Anxiety, hypothyroid, chronic arthritis. 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 Denies use of any dictation drugs, no smoking, alcohol rarely. . Physical examination: VITAL SIGNS: 99.2, 72, 16, 120/16 9, 95% room air GENERAL: BMI 23.3, laying in bed, bit tired appearing. EYES: Pupils equal. Conjunctiva normal. HEENT: External appearance of nose and ears normal, oral cavity grossly normal. NECK: JVD not raised; masses not palpable. HEART: First and second heart sounds are normal; no edema. LUNGS: Respiratory rate normal; clear to auscultation. ABDOMEN: Soft, slightly distended, bowel sounds present, liver spleen not palpable, no masses palpable. PSYCH: Alert and oriented x3; mood and affect anxiousl. NEUROLOGICAL: Cranial nerves grossly intact; no facial asymmetry, power and sensation grossly intact. LYMPHATICS: No lymph nodes palpable in the axilla and neck INVESTIGATIONS, reviewed in the clinical context: White count 14.8 hemoglobin 14.2 platelets 211 neutrophils 12.5 potassium 5 creatinine 1.07 AST 148 ALT 226 Coronavirus [PCR]-not detected Assessment and plan: -Acute severe obstipation, and the patient's recently at ambulatory hernia surgery who chronically takes pain medications, decreased ambulation and increasing use of narcotic. Patient has been given an enema in the ER. Currently getting magnesium citrate. General surgery consulted -Chronic arthritis of the knees and ankles. Continue taking Lodine. DC Toradol and ibuprofen. -Hypothyroid. Continue with Synthroid. Check free T4 TSH. Clinically does not appear to be hypothyroid -Depression and anxiety not otherwise specified. Continue with Wellbutrin. -Hypotensive still started on Cardizem. Continue with patch -Elevated liver enzymes. Recheck acetaminophen level. Repeat the labs in the morning. Spoke again to the patient and this morning. They will talk to the surgeon. And decided from day. In the meantime patient to complete taking his medication citrate... Lovenox for DVT prophylaxis. Past Medical History Past Medical History: Osteoarthritis (OA), Prostate Disorder, Thyroid Disorder Additional Past Medical History / Comment(s): Migraines, arthritis multiple joints/low back pain, gastritis, hypothyroid, BPH that resolved History of Any Multi-Drug Resistant Organisms: None Reported Past Surgical History: Hernia Repair Additional Past Surgical History / Comment(s): 12/02/20 umbilical hernia repair, EGD, vasectomy Past Anesthesia/Blood Transfusion Reactions: No Reported Reaction Smoking Status: Former smoker - Past Family History Mother Family Medical History: Cancer Additional Family Medical History / Comment(s): Mother is from lung cancer. Father Additional Family Medical History / Comment(s): Father of a drug overdose. Medications and Allergies Home Medications Medication Instructions Recorded Confirmed Type Diclofenac Sodium [Voltaren] 75 mg PO BID 02/06/17 12/09/20 History Testosterone [Androderm] 1 patch TRANSDERM Q72H 02/06/17 12/09/20 History traMADol HCL [Ultram] 50 mg PO TID PRN 02/06/17 12/09/20 History Levothyroxine Sodium [Synthroid] 25 mcg PO HS 12/01/20 12/09/20 History Tadalafil [Alyq] 20 mg PO DIRECTED PRN 12/01/20 12/09/20 History HYDROcodone/APAP 10-325MG [[place] 1 tab PO Q6HR PRN 3 Days #12 tab 12/02/20 12/09/20 Rx 10-325] Ibuprofen [Motrin] 800 mg PO Q8H PRN #24 tab 12/02/20 12/09/20 Rx Dextroamphetamine/Amphetamine 20 mg PO DAILY PRN 12/09/20 12/09/20 History [Adderall Xr] Ketorolac [Toradol] 10 mg PO TID 12/09/20 12/09/20 History Rizatriptan Benzoate [Maxalt] 10 mg PO DAILY PRN 12/09/20 12/09/20 History buPROPion XL [Wellbutrin Xl] 300 mg PO HS 12/09/20 12/09/20 History Allergies Allergy/AdvReac Type Severity Reaction Status Date / Time No Known Allergies Allergy Verified 12/09/20 08:36 Physical Exam Vitals: Vital Signs Temp Pulse Pulse Resp BP BP Pulse Ox 12/09/20 09:41 98.2 F 77 14 121/77 97 12/09/20 09:00 99.2 F 72 16 120/69 95 12/09/20 08:00 76 16 120/69 95 12/09/20 05:51 78 19 126/78 99 12/09/20 00:56 99.2 F 87 16 134/90 98 Intake and Output 12/08/20 12/09/20 12/09/20 22:59 06:59 14:59 Other: # Voids 1 Weight 63.503 kg 63.503 kg Results CBC & Chem 7: 12/09/20 02:12 12/09/20 02:12 Labs: Abnormal Lab Results - Last 24 Hours (Table) 12/09/20 12/09/20 Range/Units 02:12 02:12 WBC 14.8 H (3.8-10.6) k/uL Neutrophils # 12.5 H (1.3-7.7) k/uL Glucose 100 H (74-99) mg/dL AST 148 H (17-59) U/L ALT 226 H (4-49) U/L Thrombosis Risk Factor Assmnt - Choose All That Apply Any of the Below Risk Factors Present?: Yes Each Factor Represents 1 point: Age 41-60 years Other Risk Factors: No Other congenital or acquired thrombophilia - If yes, enter type in comment: No Thrombosis Risk Factor Assessment Total Risk Factor Score: 1 Thrombosis Risk Factor Assessment Level: Low Risk
[2020-12-09] MEDS: oxyCODONE-APAP 7.5-325MG 1 EACH TAB PO PRN (23:58)
[2020-12-10 02:17] VITALS: TEMP 98
[2020-12-10] MEDS: SODIUM CHLORIDE 0.9% 1,000 ML IV SCH (06:02)
[2020-12-10 06:06] LABS: Basophils % (A) 1 %; Eosinophils # (A) 0.3 k/uL (0-0.7); Eosinophils % (A) 4 %; HCT 39.3 % (39.0-53.0); HGB 13.4 gm/dL (13.0-17.5); Lymphocytes # (A) 1.4 k/uL (1.0-4.8); Lymphocytes % (A) 21 %; MCH 30.8 pg (25.0-35.0); MCHC 33.9 g/dL (31.0-37.0); MCV 90.8 fL (80.0-100.0); Mean Platelet Volume 8.8; Monocytes # (A) 0.6 k/uL (0-1.0); Monocytes % (A) 8 %; Neutrophils # (A) 4.5 k/uL (1.3-7.7); Neutrophils % (A) 66 %; Platelet Count 193 k/uL (150-450); RBC 4.33 m/uL (4.30-5.90); RDW 12.1 % (11.5-15.5); WBC 6.9 k/uL (3.8-10.6)
[2020-12-10] MEDS ORDERED: LEVOTHYROXINE 25 MCG TAB PO SCH (06:30)
[2020-12-10 06:46] LABS: ALT 221 U/L (4-49); AST 124 U/L (17-59); African American GFR (CKD) >90 (>60 ml/min/1.73 sqM); Albumin 3.3 g/dL (3.5-5.0); Albumin/Globulin Ratio 1.4; Alkaline Phosphatase 80 U/L (38-126); Anion Gap 3 mmol/L; Blood Urea Nitrogen 12 mg/dL (9-20); Calcium 8.5 mg/dL (8.4-10.2); Carbon Dioxide 29 mmol/L (22-30); Chloride 105 mmol/L (98-107); Globulin 2.4 g/dL; Glucose 98 mg/dL (74-99); Non-African American GFR(CKD) >90 (>60 ml/min/1.73 sqM); Potassium 4.3 mmol/L (3.5-5.1); Sodium 137 mmol/L (137-145); Total Bilirubin 1.2 mg/dL (0.2-1.3); Total Protein 5.7 g/dL (6.3-8.2)
[2020-12-10 07:59] VITALS: BP 109/72; PULSE 76
[2020-12-10] MEDS: DOCUSATE 100 MG CAP PO SCH (08:03)
[2020-12-10] MEDS: ENOXAPARIN 40 MG/0.4 ML SYRINGE SQ SCH (08:03)
[2020-12-10] MEDS: ETODOLAC 400 MG TAB PO SCH (08:04)
[2020-12-10] MEDS: oxyCODONE-APAP 7.5-325MG 1 EACH TAB PO PRN (08:15)
[2020-12-10] MEDS ORDERED: polyethylene glycoL 3350 17 GM POWD.PACK PO SCH (09:00)
--- NOTE | 2020-12-10 10:54 | P.PN ---
Subjective Progress Note Date: 12/10/20 Patient seen and examined at bedside. States his abdominal pain is much improved. He states that his pain is level is a 4 compared to a 10 previously. He has had multiple bowel movements with a bowel regimen. He is tolerating diet without nausea or vomiting. He states he also feels much less bloated. Objective - Vital Signs Vital signs: Vital Signs Temp 98.0 F 12/10/20 07:00 Pulse 76 12/10/20 08:00 Resp 16 12/10/20 08:00 BP 109/72 12/10/20 07:00 Pulse Ox 97 12/10/20 07:00 Intake & Output 12/09/20 12/10/20 12/10/20 18:59 06:59 18:59 Weight 63.503 kg Other: Voiding Method Toilet Bedside Commode # Voids 1 1 # Bowel Movements 2 - Constitutional General appearance: Present: cooperative, no acute distress - Gastrointestinal Gastrointestinal Comment(s): Soft, appropriate tenderness, much improved distention, and no rebound, no guarding - Labs CBC & Chem 7: 12/10/20 05:54 12/10/20 05:54 Labs: Abnormal Lab Results - Last 24 Hours (Table) 12/10/20 Range/Units 05:54 AST 124 H (17-59) U/L ALT 221 H (4-49) U/L Total Protein 5.7 L (6.3-8.2) g/dL Albumin 3.3 L (3.5-5.0) g/dL Assessment and Plan Plan: Patient appears much improved today from exam yesterday. Leukocytosis has resolved without any antibiotics. Liver enzymes are trending down. This was discussed with the patient and could be secondary to acetaminophen use. Acetaminophen levels are noted to be normal. I did discuss pain regimen with the patient in depth. We will plan for discharge on opiate and NSAID for pain relief. The patient is aware that he is quite sensitive to constipation with opiate pain medication and will require a bowel regimen at home if continuing to take opiates. He is surgically stable for discharge. Case was discussed with Dr. Kelley patient's admitting physician.
--- NOTE | 2020-12-10 20:09 | P.DS ---
Providers Date of admission: 12/09/20 07:48 Expected date of discharge: 12/10/20 Attending physician: Rosalio Kelley Consults: 12/09/20 07:49 Consult Physician Routine Consulting Provider: Rosa M Aly Consult Reason/Comments: your patient. Abdominal pain Do you want consulting provider notified?: Yes Primary care physician: Edgar Willis [facility] Course: Chief Complaint: Abdominal pain History of presenting complaint: This is a pleasant 45-year-old patient of Dr. Edgar Willis. Patient had undergone a clinical hernia surgery by , close to about a week ago. That is Saturday. Patient is sent to the ER the following Saturday with increasing pain. Sent home from the same. Patient continued to have an oral intake. Never had a bowel movement. He said he tried to contact the surgeon's office but was asked to continue the same medications. Patient is having worsening abdominal pain. No nausea vomiting. No fever no chills. Decrease activity. He presented to the ER again. Computed tomography scan did show a lot of stool retention. Patient did get a subsided and now in the ER with a small result. We'll also started on magnesium citrate. Today-Patient is a large bowel movement yesterday. Pain much improved. Tolerating a diet. Seen by Dr. Aly. Care plan for discharge. I discussed with patient at length side effect of narcotics and talked about alternative pain medications that can be done as an outpatient. Also talked about high- fiber diet. He'll follow up with his PCP. Discussion and discharge planning more than 35 minutes Consultation: Dr. Aly from general surgery Past medical history to include: Anxiety, hypothyroid, chronic arthritis. 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 Denies use of any dictation drugs, no smoking, alcohol rarely. . Physical examination: VITAL SIGNS: 98, 76, 16, 109/72, 97% room air GENERAL: BMI 23.3, laying in bed, comfortable EYES: Pupils equal. Conjunctiva normal. HEENT: External appearance of nose and ears normal, oral cavity grossly normal. NECK: JVD not raised; masses not palpable. HEART: First and second heart sounds are normal; no edema. LUNGS: Respiratory rate normal; clear to auscultation. ABDOMEN: Soft, mild tenderness, bowel sounds present, liver spleen not palpable, no masses palpable. Bowel sounds present PSYCH: Alert and oriented x3; mood and affect normal White count 6.9 and he would 13.4 potassium 4.3 AST 124 ALT 221. INVESTIGATIONS, reviewed in the clinical context: TSH 0.653 White count 14.8 hemoglobin 14.2 platelets 211 neutrophils 12.5 potassium 5 creatinine 1.07 AST 148 ALT 226 Coronavirus [PCR]-not detected Assessment and plan: -Acute severe obstipation, and the patient's recently at ambulatory hernia surgery who chronically takes pain medications, decreased ambulation and increasing use of narcotic. Patient has been given an enema in the ER. Currently getting magnesium citrate. General surgery consulted -Chronic arthritis of the knees and ankles. Continue taking Lodine. DC Toradol and ibuprofen. -Patient possibly euthyroid. Patient is only on small dose of Synthroid. TSH is very low normal. At 0.6 Will discontinue the Synthroid and have the patient recheck TSH in 4 weeks. -Depression and anxiety not otherwise specified. Continue with Wellbutrin. -Elevated liver enzymes. Some improvement. Discussed with the patient and Dr. Aly. Repeat as an outpatient. Disposition: Home Labs: CMP-5 days Free T4 TSH in 4 weeks Addendum: I called the patient at home this evening to inform them to hold off his Synthroid and get it rechecked levels in 4 weeks by his PCP. Plan - Discharge Summary Discharge Rx Participant: No New Discharge Prescriptions: New Ibuprofen [Motrin] 800 mg PO Q8H PRN #24 tab PRN Reason: Pain oxyCODONE-APAP 10-325MG [Percocet 10-325 mg] 1 tab PO Q6HR PRN 3 Days #12 tab PRN Reason: Pain Psyllium Husk 100% [Metamucil Packet] 6 gm PO DAILY #20 packet Continue traMADol HCL [Ultram] 50 mg PO TID PRN PRN Reason: Pain Testosterone [Androderm] 1 patch TRANSDERM Q72H Levothyroxine Sodium [Synthroid] 25 mcg PO HS Tadalafil [Alyq] 20 mg PO DIRECTED PRN PRN Reason: E.D buPROPion XL [Wellbutrin XL] 300 mg PO HS Rizatriptan Benzoate [Maxalt] 10 mg PO DAILY PRN PRN Reason: Headache Dextroamphetamine/Amphetamine [Adderall Xr] 20 mg PO DAILY PRN PRN Reason: adhd Discontinued Diclofenac Sodium [Voltaren] 75 mg PO BID Ibuprofen [Motrin] 800 mg PO Q8H PRN #24 tab PRN Reason: Pain HYDROcodone/APAP 10-325MG [[place] 10-325] 1 tab PO Q6HR PRN 3 Days #12 tab PRN Reason: Pain Ketorolac [Toradol] 10 mg PO TID Discharge Medication List Testosterone [Androderm] 1 patch TRANSDERM Q72H 02/06/17 [History] traMADol HCL [Ultram] 50 mg PO TID PRN 02/06/17 [History] Levothyroxine Sodium [Synthroid] 25 mcg PO HS 12/01/20 [History] Tadalafil [Alyq] 20 mg PO DIRECTED PRN 12/01/20 [History] Dextroamphetamine/Amphetamine [Adderall Xr] 20 mg PO DAILY PRN 12/09/20 [History] Rizatriptan Benzoate [Maxalt] 10 mg PO DAILY PRN 12/09/20 [History] buPROPion XL [Wellbutrin XL] 300 mg PO HS 12/09/20 [History] Ibuprofen [Motrin] 800 mg PO Q8H PRN #24 tab 12/10/20 [Rx] Psyllium Husk 100% [Metamucil Packet] 6 gm PO DAILY #20 packet 12/10/20 [Rx] oxyCODONE-APAP 10-325MG [Percocet 10-325 mg] 1 tab PO Q6HR PRN 3 Days #12 tab 12/10/20 [Rx] Follow up Appointment(s)/Referral(s): Edgar Willis MD [Primary Care Provider] - 1-2 days Rosa M Aly DO [Doctor of Osteopathic Medicine] - 12/14/20 Activity/Diet/Wound Care/Special Instructions: cmp - 5 days Discharge Disposition: HOME SELF-CARE
== END 2020-12-10 12:15 | disposition home or self-care (01) ==
LOC: EC 00:51 → 6NMEDSUR 07:48
PROVIDERS: ADMIT Hospitalist; ATTEND Hospitalist
DX: K59.00 Constipation, unspecified (principal); M17.0 Bilateral primary osteoarthritis of knee; M19.072 Primary osteoarthritis, left ankle and foot; M19.071 Primary osteoarthritis, right ankle and foot; Z98.890 Other specified postprocedural states; F41.9 Anxiety disorder, unspecified; F32.9 Major depressive disorder, single episode, unspecified; E78.5 Hyperlipidemia, unspecified; E03.9 Hypothyroidism, unspecified; I95.9 Hypotension, unspecified; R74.8 Abnormal levels of other serum enzymes; D72.829 Elevated white blood cell count, unspecified; R74.01 Elevation of levels of liver transaminase levels; F90.9 Attention-deficit hyperactivity disorder, unspecified type; Z87.891 Personal history of nicotine dependence; N40.0 Benign prostatic hyperplasia without lower urinary tract symptoms; G43.909 Migraine, unspecified, not intractable, without status migrainosus; M54.5 Low back pain; Z20.822 Contact with and (suspected) exposure to COVID-19; Z79.891 Long term (current) use of opiate analgesic; Z79.890 Hormone replacement therapy; Z79.899 Other long term (current) drug therapy; Z87.19 Personal history of other diseases of the digestive system; Z80.1 Family history of malignant neoplasm of trachea, bronchus and lung; Z79.1 Long term (current) use of non-steroidal anti-inflammatories (NSAID)
CPT/HCPCS: 96376; 96361 ×3; 96372 ×2; 96375; 96374; 99285; 36415; 80053 ×2; 84443; 82150; 83690; 85025 ×2; 80143; 87635; 74018; 74176; G0378 ×2; J2270; J1650 ×2; C9113